=== PATIENT | female | born 1960 | race African-American/Black ===

== ENCOUNTER 2018-01-24 05:26 | Inpatient (IN) | payer MEDICAID, OTHER ==
[~2018-01-24] VITALS: Ht 160 cm; Wt 71.9 kg
[~2018-01-24 05:26] MED LIST: FERR325T20 PO
[2018-01-24] MEDS ORDERED: SODIUM CHLORID 0.9% 500 ML IV PRN (06:00)
[2018-01-24] MEDS ORDERED: HEPARIN SODIUM - SQ 10,000 UNITS/ML VIAL SQ SCH (06:00)
[2018-01-24] MEDS ORDERED: METOPROLOL TARTRATE 25 MG TAB PO PRN (06:00)
[2018-01-24] MEDS ORDERED: ceFAZolin 1,000 MG/NS 100 ML IV SCH ×2 (06:00)
[2018-01-24] MEDS ORDERED: LACTATED RINGER'S 1000 ML IV PRN (06:00)
[2018-01-24] MEDS ORDERED: CHLORHEXIDINE GLUCONATE 2 % 1 PACK (2 CLOTHS) TOPICAL PRN (06:00)
[2018-01-24] MEDS ORDERED: POVIDONE IODINE 5% (ANTISEPSIS KIT) 4 APPLICATIONS EACH NARE PRN (06:00)
[2018-01-24] MEDS ORDERED: MEDR10TA7 PO (06:17)
[2018-01-24] MEDS ORDERED: ACETAMINOPHEN 1000 MG/100 ML 100 ML IV ONE (07:04)
[2018-01-24] MEDS ORDERED: NALOXONE HCL 0.4 MG/ML AMP IV PUSH PRN (11:15)
[2018-01-24] MEDS ORDERED: SODIUM CHLORIDE 0.9% FLUSH 10 ML FLUSH IV FLUSH PRN (11:15)
[2018-01-24] MEDS ORDERED: DO NOT ADM ANY ANTICOAGULANT DRUGS PRN (11:52)
[2018-01-24] MEDS ORDERED: ONDANSETRON HCL 4 MG/2 ML VIAL IV ONE (12:00)
[2018-01-24] MEDS ORDERED: LORazepam 0.5 MG TAB PO PRN (12:00)
[2018-01-24] MEDS ORDERED: LIDOCAINE HCL 1% PF 5 ML SYRINGE OTHER ONE (12:00)
[2018-01-24] MEDS ORDERED: DEXAMETHASONE SOD PHOS 4 MG/ML VIAL IV ONE (12:00)
[2018-01-24] MEDS ORDERED: NEOSTIGMINE 5 MG/5 ML SYRINGE IV PUSH ONE (12:00)
[2018-01-24] MEDS ORDERED: GLYCOPYRROLATE 1 MG/5 ML SYRINGE IV PUSH ONE (12:00)
[2018-01-24] MEDS ORDERED: LACTATED RINGER'S 1000 ML INJ 2,000 ML IV ONE (12:00)
[2018-01-24] MEDS ORDERED: PHENYLEPH/NS 1000 MCG/10 ML SYR IV ONE (12:00)
[2018-01-24] MEDS ORDERED: ONDANSETRON HCL 4 MG/2 ML VIAL IVP PRN (12:00)
[2018-01-24] MEDS ORDERED: ePHEDrine/NS 25 MG/5 ML SYRINGE IV ONE (12:00)
[2018-01-24] MEDS ORDERED: VECURONIUM BROMIDE 20 MG VIAL IV ONE (12:00)
[2018-01-24] MEDS ORDERED: PROPOFOL 200 MG/20 ML AMP IV ONE (12:00)
[2018-01-24] MEDS ORDERED: PHENYLEPHRINE HCL 10 MG/ML VIAL IV ONE (12:00)
[2018-01-24] MEDS ORDERED: ROCURONIUM INJ 50 MG/5 ML SYRINGE IV PUSH ONE (12:00)
[2018-01-24] MEDS ORDERED: MIDAZOLAM HCL 2 MG/2 ML VIAL ONE (12:02)
[2018-01-24] MEDS ORDERED: MORPHINE SULFATE 4 MG/ML INJ ONE (12:03)
[2018-01-24] MEDS ORDERED: HYDROmorphone HCL PF 2 MG/ML VIAL ONE (12:05)
[2018-01-24] MEDS: MORPHINE SULFATE 30 MG/30 ML PCA IV SCH (12:25)
[2018-01-24] MEDS: D5-1/2 NS + KCL 20 MEQ INJ 1,000 ML IV SCH ×2 (12:30→21:56)
--- NOTE | 2018-01-24 13:01 | MP ---
cc: Trista Draper MD, John W MD DATE OF OPERATION: 01/24/2018 PREOPERATIVE DIAGNOSES: 1. Grade 2 endometrial cancer. 2. Markedly enlarged uterus. POSTOPERATIVE DIAGNOSES: 1. Grade 2 endometrial cancer. 2. Markedly enlarged uterus. PROCEDURE: Exploratory laparotomy, total abdominal hysterectomy, bilateral salpingo-oophorectomy, bilateral pelvic lymphadenectomy. SURGEON: Trista Draper MD COMMISSARY SUPERINTENDENT: [facility] nurse first aid. ANESTHESIA: General endotracheal anesthesia. ESTIMATED BLOOD LOSS: 350 cc. IV FLUIDS: 2200 cc. URINE OUTPUT: 440 cc. HISTORY: A 57-year-old female with postmenopausal bleeding of uncertain duration. Until recently it had been estimated 30 years since her last gynecologic exam. Due to persistent symptoms, she finally sought evaluation. Biopsy showed a large volume of tumor in the uterus, also extending into the cervix. Biopsies from both uterus and cervix suggested grade 2 endometrial adenocarcinoma. Physical exam and imaging showed the uterus markedly enlarged, approximately 18 cm and wide, extending down to the lower uterine segment. Also, the cervix was prominent circumferentially with suggestion of tumor infiltration into the cervix. Imaging showed no overt evidence of metastatic disease. She was counseled regarding these findings. Recommendation is for surgery. She is seen again in the preop holding area where the findings and plan are again reviewed. Questions are answered. She expressed good understanding and would like to move forward. FINDINGS: On exam under anesthesia, the cervix was prominent but circumferentially smooth. It seems as though there is probably tumor infiltrating into the endocervix, possibly into the cervical stroma but there is no obvious parametrial nodularity or retraction. The uterus and cervix still retain some mobility. The lower uterine segment is wide and the uterus extends to the level of the umbilicus. Upon exploration of the peritoneal cavity, the aforementioned findings are confirmed. The uterus is markedly enlarged. There is a mass effect in the right lower uterine segment at the junction of the lower uterine segment and cervix grossly suggestive or leiomyoma. The tubes and ovaries grossly appear normal. There are a couple of borderline prominent lymph nodes in the pelvis, one on each side. There are no appreciably enlarged or prominent lymph nodes along the common iliac vessels or along the aorta or vena cava. Diaphragm edges are smooth. Omentum grossly appears normal. Large and small bowel and adjacent mesentery are without any evidence of tumor implants. The uterus once removed was evaluated by pathology. There was a very large tumor, 13 cm estimated dimension. It invaded beyond usp into the myometrium and extended down into the cervix. STATEMENT OF COMPLEXITY/MODIFIER: The complexity of this case was increased significantly due to the markedly enlarged uterus which increased complexity of the dissection and modifier should be applied accordingly. PROCEDURE: She was taken to the operating room, placed in dorsal lithotomy position. After general endotracheal anesthesia was administered, time-out was undertaken. She was identified by sight recognition, hospital ID melanie and the proposed procedure was reviewed and confirmed. She was carefully padded and positioned in Sergio stirrups. Her arms were secured out to her sides. She was prepped and draped in sterile fashion after exam under anesthesia was performed with findings as described above. Midline incision made from the symphysis to the umbilicus, carried down to the level of the fascia. The fascia was entered. The rectus muscles were in the midline. The peritoneal cavity was entered. Peritoneal washings were obtained for cytology. Preliminary assessment of the anatomy was carried out with findings as described above. The Bookwalter and lap pad retractors were used to help assist in surgical exposure. The left round ligament was doubly suture ligated and transected. The anterior and posterior leaves of the broad ligament were opened. The left ureter was identified. The left infundibulopelvic ligament was isolated. The intervening peritoneum was opened near the uterus and dissected proximally to elevate the gonadal vessels and retract the ureter posteriorly. The gonadal vessels were then doubly clamped, cut and suture ligated. The anterior vesicouterine peritoneum was dissected over the lower uterine segment and cervix and the posterior peritoneum was opened along the right side of the uterus and cervix and the uterine vessels were skeletonized. Attention was directed towards the right side. The right round ligament was doubly suture ligated and transected. The anterior and posterior leaves of the broad ligament were opened. The right ureter was identified and the right infundibulopelvic ligament was isolated. The intervening peritoneum was opened near the uterus, dissecting the infundibulopelvic ligament proximally, elevating the gonadal vessels. The ureter was retracted posteriorly and the infundibulopelvic ligament was doubly clamped, cut and doubly suture ligated. The posterior peritoneum was opened along the left side of the uterus and cervix and the left vesicouterine peritoneum was dissected of the lower uterine segment and cervix. The uterine vessels were now clamped bilaterally and then back-clamped and a moment or two of observation to insure that the specimen began to yong satisfactorily. The uterine vessels on the right side were cut, doubly suture ligated. The cardinal, paracervical and uterosacral ligaments were isolated, clamped, cut in a stepwise fashion along the right side of the uterus and cervix. Attention was directed toward the left side where now the uterine vessels were transected, doubly suture ligated and the cardinal, paracervical and uterosacral ligaments were taken down in a stepwise fashion by clamping, cutting and suture ligating these tissues. Visual and manual palpation confirmed that dissection was now at the level of the cervix and curved Guadalupe clamps were placed at the lateral vaginal angles below the edge of the cervix. Specimen was cut, suture ligated. Curved Guadalupe clamps were then placed again below the cervix confirming the entire cervix was removed by visual and manual and palpation and then sharp dissection was used transecting below the cervix, across the vaginal apex. The specimen was inspected. The entire cervix was removed. The specimen included uterus, cervix, tubes and ovaries, was sent to pathology for preliminary histopathologic analysis. The vaginal cuff was closed and supported with interrupted [id number] 0 Vicryl sutures rendering it completely hemostatic and supported. The pelvis was thoroughly irrigated. Small bleeders were rendered hemostatic with bipolar cautery. Pathology came back showing extensive tumor, deep invasion, cervical extension and so attention was directed toward dissecting the pelvic lymph nodes. The para-vesical, pararectal and obturator spaces were opened bilaterally and the peritoneal incision was extended to gain access to these spaces. Dissection was started on the right side where lymphatic tissue was dissected starting at the bifurcation of the right iliac vessels. Bipolar cautery and sharp dissection were used to remove lymphatics from along the medial psoas muscle from the external iliac artery and vein distally to the circumflex iliac vein. The medial border of dissection was the superior vesical artery. Lymphatics and the base of dissection was the obturator nerve and lymphatics central to the obturator nerve were dissected with blunt dissection, focal cautery, sharp dissection from distal to proximal and the en bloc specimen of right pelvic lymph nodes was removed. Small bleeders were rendered hemostatic with bipolar cautery. Attention was directed toward the left side where similarly lymphatic tissue was taken from the external iliac artery and vein following the same borders distally to the circumflex iliac vein, medially to the superior vesical artery and the dissection was carried down to the obturator nerve and lymphatic tissue ventral to the obturator nerve was dissected from distal to proximal and this en block specimen of left pelvis lymph nodes was removed. Small bleeders were rendered hemostatic with bipolar cautery. The pelvis was thoroughly irrigated. Small bleeders along the bladder flap and in the pelvic dissection bed were hemostatic with cautery. All sites were hemostatic. Surgicel was placed across between the bladder flap and vaginal cuff. Surgicel was placed in the right and left pelvic lymph node dissection beds and then Surgicel powder was used across the cuff, lateral pelvic sidewalls and posterior cul-de-sac. All sites were satisfactorily hemostatic. The neurovascular structures were intact. Good peristalsis of ureters and there was a good margin between the vaginal cuff suture line and the intact bladder wall. The lap pads and Bookwalter retractor were removed. The anatomy was again explored. Inspection of the periaortic and pericaval lymph nodes revealed no abnormality. It was felt that the pelvic lymph nodes would given an accurate preliminary assessment of the presence of absence of extrauterine disease so it was felt that all reasonable surgical objectives had been completed and attention was directed toward closing. The lap pads had been removed. The Bookwalter was disassembled. Visual and manual inspection confirmed there were no remaining foreign objects in the peritoneal cavity and the preliminary counts were correct. The abdominal wall was closed with a 0 looped PDS in a running continuous modified Smead-Clark fashion starting at the apices and meeting in the midpoint where the sutures were tied. The subcutaneous tissue was irrigated, Radha's fascia reapproximated with interrupted 2-0 Vicryl sutures and then the skin edge closed with a running 3-0 Vicryl subcuticular. Steri-Strips were placed over the incisions, followed by a dry sterile dressing. Pelvic exam confirmed no remaining foreign objects in the vagina. Preliminary and final counts were correct. She was returned to dorsal supine position and was pending reversal of anesthesia with I left the operating room to precede her to the post-anesthesia care unit. MD SONJA Vance/RUBIN , 12:09 PM , 12:58 PM
[2018-01-24] MEDS: KETOROLAC TROMETHAMINE 30 MG/ML (IVP) VIAL IVP SCH ×2 (13:58→18:47)
--- NOTE | 2018-01-24 15:32 | PD.ONC.PN ---
Subjective Subjective Remarks ob/gyn doctor/onc post op note patient sleeping awakens to voice c/o pain using FUNDER denies any n/v Objective Data Date Time Temp Pulse Resp B/P (MAP) Pulse Ox O2 Delivery O2 Flow Rate FiO2 01/24/18 12:35 15 01/24/18 12:30 15 01/24/18 12:25 15 01/24/18 12:15 44 15 108/75 (86) 96 Nasal Cannula 2 01/24/18 12:00 48 15 126/61 (82) 100 Nasal Cannula 3 01/24/18 11:45 98.4 54 18 131/65 (87) 100 Nasal Cannula 4 01/24/18 06:10 99.2 72 20 135/77 (96) 98 01/24/18 01/24/18 01/24/18 06:59 14:59 22:59 Intake Total 2200 ml Output Total 790 ml Balance 1410 ml Administered Medications Medications (Trade) Dose Ordered Sig/Lis Route PRN Reason Start Time Stop Time Status Last Admin Dose Admin Lactated Ringer's 1,000 ml @ 30 mls/hr Q24H PRN IV SEE LABEL COMMENTS 01/24/18 06:00 01/27/18 05:59 01/24/18 06:20 Povidone Iodine (Betadine 5% Antisepsis Kit) 1 applic MARKETING CONTENT MANAGER PRN EACH NARE SEE LABEL COMMENTS 01/24/18 06:00 01/27/18 05:59 01/24/18 06:43 Chlorhexidine Gluconate (Chlorhexidine 2% Cloth) 3 pack MARKETING CONTENT MANAGER PRN TOPICAL SEE LABEL COMMENTS 01/24/18 06:00 01/27/18 05:59 01/24/18 05:40 Cefazolin Sodium 1000 mg/Sodium Chloride 100 ml @ 200 mls/hr MARKETING CONTENT MANAGER IV 01/24/18 06:00 01/25/18 05:59 01/24/18 07:03 Heparin Sodium (Porcine) (Heparin Inj) 5,000 units MARKETING CONTENT MANAGER SQ 01/24/18 06:00 01/25/18 05:59 01/24/18 06:43 Potassium Chloride/Dextrose/ Sod Cl 1,000 ml @ 100 mls/hr Q10H IV 01/24/18 13:00 01/24/18 12:30 Ketorolac Tromethamine (Toradol Inj) 15 mg Q6H IVP 01/24/18 13:00 01/27/18 07:01 01/24/18 13:58 Morphine Sulfate (Morphine 1 Mg/ ml FUNDER) 30 mg UNSCH IV 01/24/18 11:15 01/24/18 12:25 Objective Remarks GENERAL: Well-nourished, well-developed patient. SKIN: Warm and dry. HEAD: Normocephalic. EYES: No scleral icterus. No injection or drainage. CARDIOVASCULAR: Regular rate and rhythm without murmurs. RESPIRATORY: Breath sounds equal bilaterally. No accessory muscle use. GASTROINTESTINAL: dressing c/d/i EXTREMITIES: teds and scds. MUSCULOSKELETAL: Adequate muscle tone. NEUROLOGICAL: No obvious focal deficit. sleepy PSYCHIATRIC: Appropriate mood and affect; insight and judgment normal. Assessment/Plan Problem List: (1) Post-operative state ICD Codes: Z98.890 - Other specified postprocedural states Status: Acute Plan: s/p X lap hysterectomy and BSO with PLND post op orders in chart FUNDER for pain ADAT OOB to chair tomorrow paul d/c POD #2 cbc with diff and BMP in AM anticipate discharge in next 2-3 days. Arpita Bruce Jan 24, 2018 15:32
[2018-01-24 16:01] VITALS: BP 141/72; PULSE 49; RESP 16; TEMP 98.2; O2SAT 100
[2018-01-24] MEDS: PCA - TOTAL MG MORPHINE DELIVERED PER SHIFT SCH ×2 (16:38→22:00)
[2018-01-24] MEDS: oxyCODONE/ACETAMINOPHEN 5 MG/325 MG TAB PO PRN ×2 (17:45→21:56)
[2018-01-24 20:04] VITALS: PULSE 52
[2018-01-24 20:14] VITALS: BP 154/85; PULSE 51; TEMP 98; O2SAT 100
[2018-01-24] MEDS: SODIUM CHLORIDE 0.9% FLUSH 10 ML FLUSH IV FLUSH SCH (20:30)
[2018-01-24 23:00] VITALS: PULSE 50
[2018-01-25] VITALS (29 sets, daily range): BP systolic 101–154; BP diastolic 47–92; PULSE 48–74; RESP 14–18; TEMP 97.9–98.9; O2SAT 97–100
[2018-01-25] MEDS: KETOROLAC TROMETHAMINE 30 MG/ML (IVP) VIAL IVP SCH ×4 (01:09→18:32)
[2018-01-25] MEDS: oxyCODONE/ACETAMINOPHEN 5 MG/325 MG TAB PO PRN ×4 (02:59→22:13)
[2018-01-25] MEDS: PCA - TOTAL MG MORPHINE DELIVERED PER SHIFT SCH ×3 (06:00→22:00)
[2018-01-25 06:44] LABS: BASOPHIL % 0.3 % (0.0-2.0); EOSINOPHIL % 0.3 % (0.0-4.0); HEMATOCRIT 33.8 % (35.0-46.0); HEMOGLOBIN 11.1 GM/DL (11.6-15.3); LYMPH % 10.7 % (9.0-44.0); LYMPHOCYTE # 1.3 TH/MM3 (1.0-4.8); MEAN CELL VOLUME 78.6 FL (80.0-100.0); MEAN CORPUSCULAR HEMOGLOBIN 25.9 PG (27.0-34.0); MEAN PLATELET VOLUME 9.1 FL (7.0-11.0); MONO % 6.1 % (0.0-8.0); MONOCYTE # 0.7 TH/MM3 (0-0.9); NEUT % 82.6 % (16.0-70.0); PLATELET COUNT 311 TH/MM3 (150-450); RED CELL DISTRIBUTION WIDTH 20.2 % (11.6-17.2); WHITE BLOOD COUNT 12.1 TH/MM3 (4.0-11.0)
[2018-01-25 07:04] LABS: BICARBONATE 23.4 MEQ/L (21.0-32.0); CALCIUM 8.5 MG/DL (8.5-10.1); CREATININE 0.73 MG/DL (0.50-1.00)
[2018-01-25] MEDS: SODIUM CHLORIDE 0.9% FLUSH 10 ML FLUSH IV FLUSH SCH ×2 (07:30→20:26)
[2018-01-25] MEDS: D5-1/2 NS + KCL 20 MEQ INJ 1,000 ML IV SCH ×2 (07:39→17:40)
--- NOTE | 2018-01-25 07:51 | HHI.PR ---
Subjective . c/o pain, being tired c/w surgery no other c/o Objective . 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 pod#1 doing well in early post-op period findings, surgical steps, preliminary path reviewed q&a, she understands increase oob, spirometry continue inventory specialist manager, paul 24 hours Trista Jasso MD Jan 25, 2018 07:51
[2018-01-25] MEDS: MORPHINE SULFATE 30 MG/30 ML PCA IV SCH (13:53)
[2018-01-26] VITALS (17 sets, daily range): BP systolic 136–157; BP diastolic 81–95; PULSE 55–104; RESP 14–18; TEMP 97.5–98.9; O2SAT 96–100
[2018-01-26] MEDS: KETOROLAC TROMETHAMINE 30 MG/ML (IVP) VIAL IVP SCH ×4 (00:38→19:50)
[2018-01-26] MEDS: D5-1/2 NS + KCL 20 MEQ INJ 1,000 ML IV SCH ×2 (03:40→19:51)
[2018-01-26] MEDS: oxyCODONE/ACETAMINOPHEN 5 MG/325 MG TAB PO PRN ×4 (04:54→22:03)
[2018-01-26] MEDS: PCA - TOTAL MG MORPHINE DELIVERED PER SHIFT SCH (06:00)
--- NOTE | 2018-01-26 07:43 | HHI.PR ---
Subjective . no new c/o except some gas pains oob with assistance voiding s/p paul removal limited po intake Objective . 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 pod #2 progressing in post-op recovery decrease ivf to 50 ml/hr increase oob, spirometry adat, d/c body engineer q&a Trista Draper MD Jan 26, 2018 07:43
[2018-01-26] MEDS: SODIUM CHLORIDE 0.9% FLUSH 10 ML FLUSH IV FLUSH SCH (19:52)
[2018-01-27] VITALS (7 sets, daily range): BP systolic 150–171; BP diastolic 84–91; PULSE 65–77; RESP 16; TEMP 98–98.5; O2SAT 93–100
[2018-01-27] MEDS: KETOROLAC TROMETHAMINE 30 MG/ML (IVP) VIAL IVP SCH ×2 (02:07→06:09)
[2018-01-27] MEDS: oxyCODONE/ACETAMINOPHEN 5 MG/325 MG TAB PO PRN ×3 (02:09→11:20)
[2018-01-27] MEDS ORDERED: OXYC1TAB63 PO (06:26)
[2018-01-27] MEDS ORDERED: WALKER WHEELS/F1 MIS ×8 (06:47→10:42)
--- NOTE | 2018-01-27 06:54 | MD ---
cc: Trista Draper MD, John W MD DATE OF DISCHARGE: 01/27/2018 PROCEDURE: 01/24/2018, exploratory laparotomy, total abdominal hysterectomy, bilateral salpingo-oophorectomy, bilateral pelvic lymphadenectomy, diagnosis of endometrial cancer. HOSPITAL COURSE: She did satisfactorily in postop recovery. By postoperative day number 3, she was tolerating oral intake. De Jesus catheter had been removed previously. She was voiding without difficulty. She has been out of bed. She has been hemodynamically stable, adequate pain control. PHYSICAL EXAM: VITAL SIGNS: Afebrile, pulse 68-86, respirations 14-18, blood pressure 154-171/87-95, O2 saturations greater than equal to 98%. GENERAL: She is alert and oriented x 3 in no acute distress. LUNGS: Clear. CARDIOVASCULAR: Regular rate and rhythm. ABDOMEN: Soft. Incision, bandages clean and dry. MAMMAL KEEPER: No reported bleeding. EXTREMITIES: Nontender. ASSESSMENT: Postoperative day number 3 doing well. Findings at the time of surgery, preliminary pathology discussed. Activities and restrictions again reviewed. Questions were asked and answered. She expressed a good understanding. PLAN: Anticipate she will meet criteria for discharge to home today. She is to resume her prior medication. She will have a prescription for Percocet for pain if she needs it. She is to contact our office to ensure she has followup at approximately 2 weeks or to contact our office sooner should she have any questions or problems between now and the time of scheduled followup. MD SONJA Norton/PRUDENCE , 06:32 AM , 06:53 AM
== END 2018-01-27 11:50 | disposition home or self-care (01) | DRG 735 ==
LOC: HSDC 05:26 → HSDI 11:10 → HCIN 15:00
PROVIDERS: ADMIT Obstetrics & Gynecology Gynecologic Oncology; ATTEND Obstetrics & Gynecology Gynecologic Oncology
PROC: 0UT90ZZ Resection of Uterus, Open Approach (ICD-10-PCS; 2018-01-24)
PROC: 0UTC0ZZ Resection of Cervix, Open Approach (ICD-10-PCS; 2018-01-24)
PROC: 0UT20ZZ Resection of Bilateral Ovaries, Open Approach (ICD-10-PCS; 2018-01-24)
PROC: 0UT70ZZ Resection of Bilateral Fallopian Tubes, Open Approach (ICD-10-PCS; 2018-01-24)
PROC: 07TC0ZZ Resection of Pelvis Lymphatic, Open Approach (ICD-10-PCS; principal; 2018-01-24 07:23)
DX: C54.1 Malignant neoplasm of endometrium (principal)
CPT/HCPCS: 80048; 85025; 86850; 86900; 86901; 86920; 88112; 88305; 88307; 88309; 88311; 88331; 94150; J0131; J0690; J1100; J1170; J1644; J1885; J2250; J2270; J2370; J2405; J2710; J3010; J3480; J7120

== ENCOUNTER 2018-03-04 07:59 | Day surgery (SDC) | payer OTHER, MEDICAID ==
[~2018-03-04] VITALS: Ht 160 cm; Wt 71.4 kg
[~2018-03-04 07:59] MED LIST changes: +MEDR10TA7 PO; +OXYC1TAB63 PO; +WALKER WHEELS/F1 MIS
[2018-03-04 08:50] VITALS: BP 152/96; PULSE 58; RESP 20; TEMP 98.3; O2SAT 100
[2018-03-04] MEDS ORDERED: POVIDONE IODINE 5% (ANTISEPSIS KIT) 4 APPLICATIONS EACH NARE PRN (09:00)
[2018-03-04] MEDS ORDERED: VANCOMYCIN 1000 MG/NS 250 ML ON-CALL IV SCH ×2 (09:00)
[2018-03-04] MEDS ORDERED: CHLORHEXIDINE GLUCONATE 2 % 1 PACK (2 CLOTHS) TOPICAL PRN (09:00)
[2018-03-04] MEDS ORDERED: ceFAZolin 2 GM/DEX PREMIX 50 ML IV SCH (09:00)
[2018-03-04] MEDS ORDERED: SODIUM CHLOR 0.9% 1000 ML INJ 1,000 ML IV SCH (09:15)
[2018-03-04] MEDS ORDERED: MIDAZOLAM HCL 2 MG/2 ML VIAL ONE (10:38)
[2018-03-04] MEDS ORDERED: LIDOCAINE 1%/EPINEPHrine 1:100,000 SOLN 30 ML VIAL ONE (10:41)
--- NOTE | 2018-03-04 11:39 | PD.RAD ---
Post Procedure Progress Note Pre Procedure Diagnosis: (1) Endometrial cancer Post Procedure Diagnosis: (1) Endometrial cancer Procedure Date: Mar 04, 2018 Supervising Radiologist: Sharan Padilla Proceduralist/Assist: Ruslan Arreola, RT(R), Elif Tinajero RT(R) Anesthesia: Conscious Sedation Plan of Activity Patient to Unit: ROPU Patient Condition: Good See PACS Report for procedural detail/treatment Sharan Padilla MD Mar 04, 2018 11:39
[2018-03-04 11:40] VITALS: BP 124/71; PULSE 67; RESP 20; TEMP 97.4; O2SAT 98
[2018-03-04 11:55] VITALS: BP 118/67; PULSE 54; RESP 16; O2SAT 100
--- NOTE | 2018-03-04 11:59 | RADRPT ---
EXAM DATE/TIME: 03/04/2018 11:22 [facility] COMPARISON: No previous studies available for comparison. INDICATIONS : Patient presents with endometrial cancer in need of port placement for chemotherapy treatment. MEDICAL HISTORY : DVT PE SURGICAL HISTORY : Exp. lap Total hysterectomy Tubal ligation D&C ENCOUNTER: Initial ACUITY: 1 month PAIN SCORE: 0/10 LOCATION: n/a FLUORO TIME: 0.25 minutes IMAGE SERIES: 1 SEDATION TIME: 30 minutes ACCESS: Right internal jugular vein SEDATION: 1.) 3 mg midazolam (Versed) IV 2.) 150 mcg fentanyl (Sublimaze) IV Prophylactic antibiotics were administered with appropriate pre-procedure timing. Vancomycin within 2 hours of procedure, Ancef (or alternative) within 1 hour of procedure. DEVICE: 1. 8 Wolof single lumen BioFlo port PROCEDURE : 1. Continuous pulse oximetry and EKG monitoring. 2. Intravenous conscious sedation. 3. Ultrasound guidance for venous access. 4. Fluoroscopic guided implantable central venous port placement. The patient was placed supine. The neck was prepped in sterile fashion. Full sterile technique was u sed, including cap, mask, sterile gloves and gown, and a large sterile sheet. Hand hygiene and 2% ch lorhexidine Betadine was utilized per protocol for cutaneous antisepsis with appropriate dry time for site. Sterile gel and sterile probe cover were utilized for ultrasound guidance. The skin and sub cutaneous tissues were infiltrated with local anesthetic solution. Under direct ultrasound guidance, central venous access was accomplished in the targeted vessel. The ultrasound images depicting access guidance were stored and saved to PACS for permanent record. A s ubcutaneous pocket was created using blunt dissection. The port was introduced to the pocket. The c atheter tubing was fed through a subcutaneous tunnel to the venotomy site. The catheter tubing was c ut to a suitable length and then was introduced through a valved Peel-Away sheath and positioned with catheter tubing tip at the cavo-atrial junction level. The pocket incision was closed with subcutic ular Vicryl suture. Steri-Strips were applied. The port was flushed and locked with heparin solutio n per protocol. Sterile dressing was applied to the site. The patient tolerated the procedure well. Conscious sedation was performed with the prescribed dosages and duration as above in the presence of an independent trained radiology nurse to assist in the monitoring of the patient. EKG and oximetry remained stable throughout the procedure. The patient tolerated the procedure well and there were no complications. The patient was sent to post anesthesia recovery in stable condition. CONCLUSION: Uncomplicated ultrasound and fluoroscopic guided implanted central venous port catheter placement as described in detail above. An 8 Wolof Power port was placed. Sharan Padilla MD on March 04, 2018 at 11:57 Board Certified Radiologist. This report was verified electronically.
[2018-03-04 12:35] VITALS: BP 131/70; PULSE 72; RESP 20; O2SAT 100
[2018-03-04 13:00] VITALS: BP 127/73; PULSE 63; RESP 20; O2SAT 100
== END 2018-03-04 13:50 | disposition home or self-care (01) ==
LOC: HROP 07:59 → HRIP 08:03 → HROP 13:50
PROVIDERS: ATTEND Obstetrics & Gynecology Gynecologic Oncology
DX: C54.1 Malignant neoplasm of endometrium (principal)
CPT/HCPCS: 36561; 76937; 77001; 99152; 99153; C1788; J0690; J1642; J2250; J3010; J3370; J7030; J7050

== ENCOUNTER 2018-03-10 04:24 | Emergency (ER) | payer MEDICAID, OTHER ==
[~2018-03-10] VITALS: Ht 160 cm; Wt 70.0 kg
[~2018-03-10 04:24] MED LIST changes: -FERR325T20 PO; -OXYC1TAB63 PO; -WALKER WHEELS/F1 MIS
[2018-03-10 04:27] VITALS: BP 172/82; PULSE 66; RESP 18; TEMP 98.2; O2SAT 97
[2018-03-10] MEDS ORDERED: SODIUM CHLOR 0.9% 1000 ML INJ 1,000 ML IV SCH (04:57)
[2018-03-10] MEDS ORDERED: KETOROLAC TROMETHAMINE 30 MG/ML (IVP) VIAL IVP ONE (05:00)
[2018-03-10] MEDS ORDERED: SODIUM CHLORIDE 0.9% FLUSH 10 ML FLUSH IV FLUSH PRN (05:00)
[2018-03-10] MEDS ORDERED: ONDANSETRON HCL 4 MG/2 ML VIAL IVP ONE (05:00)
[2018-03-10] MEDS ORDERED: MORPHINE SULFATE 4 MG/ML INJ IV PUSH ONE (05:00)
--- NOTE | 2018-03-10 05:04 | PD ---
HPI Chief Complaint: Abdominal Pain Time Seen by Provider: 04:37 Travel History International Travel<30 days: No Contact w/Intl Traveler<30days: No Traveled to known affect area: No History of Present Illness HPI The patient is a 57-year-old female who presents to emergency department for lower abdominal pain that radiates into the vagina. The patient has a history of endometrial cancer recently underwent hysterectomy by her gynecologic oncologic surgeon, Dr. Draper. The patient cannot recall exactly the type of surgery, however, think she had stage III endometrial cancer. She recently underwent chemotherapy on Wednesday via port in the right chest wall. The patient had no symptoms until yesterday afternoon when she developed some periumbilical pain near the scar. She now notes there is a small area that is open in the lower scar that is weeping clear fluid. She denies any fever, chills, or sweats. She denies any nausea, vomiting, diarrhea, change in bowel habits. She does note the pain radiates into the vagina, but denies any vaginal discharge or bleeding. Symptoms are moderate. PFSH Past Medical History Arthritis: No Cancer: Yes (unsure) Cardiovascular Problems: No Diabetes: No Diminished Hearing: No Endocrine: No Genitourinary: No Hepatitis: No Hiatal Hernia: No Immune Disorder: No Musculoskeletal: No Neurologic: No Psychiatric: No Reproductive: Yes Respiratory: No Immunizations Current: No Thyroid Disease: Yes (Patient having issues with thyroid; unable to elaborate.) Tetanus Vaccination: < 5 Years Influenza Vaccination: No ?: Not Dilation and Curettage (D&C): Yes Tubal Ligation: Yes Past Surgical History AICD: No Gynecologic Surgery: Yes (D+C, TUBAL LIGATION, Hysterectomy) Hysterectomy: Yes Joint Replacement: No Pacemaker: No Other Surgery: Yes (infusa port placement) Social History Alcohol Use: No Tobacco Use: No Substance Use: No Allergies-Medications (Allergen,Severity, Reaction): Coded Allergies: No Known Allergies (Unverified Allergy, Unknown, 03/10/18) Reported Meds & Prescriptions Reported Meds & Active Scripts Active Keflex (Cephalexin) 500 Mg Capsule 500 Mg PO QID 7 Days Reported Medroxyprogesterone Acetate 10 Mg Tab 20 Mg PO DAILY Start day 21 Review of Systems Except as stated in HPI: all other systems reviewed are Neg General / Constitutional: No: Fever Cardiovascular: No: Chest Pain or Discomfort Respiratory: No: Shortness of Breath Gastrointestinal: Positive: Abdominal Pain, Other (As noted in the history of present illness), No: Nausea, Vomiting, Diarrhea Genitourinary: Positive: Pelvic Pain, No: Hematuria, Discharge, Vaginal Bleeding Skin: No Rash Physical Exam Narrative GENERAL: Awake, alert, pleasant 57-year-old female who appears her stated age and is in no acute respiratory distress. SKIN: Focused skin assessment warm/dry. HEAD: Atraumatic. Normocephalic. EYES: No injection or drainage. ENT: No nasal bleeding or discharge. Mucous membranes pink and moist. NECK: Trachea midline. No JVD. CARDIOVASCULAR: Regular rate and rhythm. No murmur appreciated. Port in place right chest wall. RESPIRATORY: No accessory muscle use. Clear to auscultation. Breath sounds equal bilaterally. GASTROINTESTINAL: Abdomen soft, minimal tenderness midline lower abdominal scar with 1.2 cm opening of the incision. There is some clear drainage from the area , no purulence. No visible bleeding. No palpable underlying hematoma or abscess. Pelvic: The exam was performed in the presence of a female nurse. External examination reveals no rashes or lesions. Speculum examination reveals what appears to be a blind cuff. There is a small yellow circular area on the left side of the cuff which is approximately 0.5 cm in diameter with minimal blood but no active arterial bleeding noted. This may be from the previous suture line. MUSCULOSKELETAL: No obvious deformities. No clubbing. No cyanosis. No edema. NEUROLOGICAL: Awake and alert. No obvious cranial nerve deficits. Motor grossly within normal limits. Normal speech. PSYCHIATRIC: Appropriate mood and affect; insight and judgment normal. Data Data Last Documented VS Vital Signs Date Time Temp Pulse Resp B/P (MAP) Pulse Ox O2 Delivery O2 Flow Rate FiO2 03/10/18 05:34 98 03/10/18 04:27 98.2 66 18 172/82 (112) Orders Orders Complete Blood Count With Diff (03/10/18 04:57) Comprehensive Metabolic Panel (03/10/18 04:57) Lactic Acid (03/10/18 04:57) Urinalysis - C+S If Indicated (03/10/18 04:57) Ct Abd/Pel W Iv Contrast(Rout) (03/10/18 04:57) Iv Access Insert/Monitor (03/10/18 04:57) Ecg Monitoring (03/10/18 04:57) Oximetry (03/10/18 04:57) Morphine Inj (Morphine Inj) (03/10/18 05:00) Ondansetron Inj (Zofran Inj) (03/10/18 05:00) Sodium Chlor 0.9% 1000 Ml Inj (Ns 1000 M (03/10/18 04:57) Sodium Chloride 0.9% Flush (Ns Flush) (03/10/18 05:00) Ketorolac Inj (Toradol Inj) (03/10/18 05:00) Iohexol 350 Inj (Omnipaque 350 Inj) (03/10/18 06:36) Ed Discharge Order (03/10/18 08:34) Labs Laboratory Tests Test 03/10/18 04:57 03/10/18 05:26 03/10/18 06:40 White Blood Count 4.4 TH/MM3 Red Blood Count 4.43 MIL/MM3 Hemoglobin 11.4 GM/DL Hematocrit 35.2 % Mean Corpuscular Volume 79.6 FL Mean Corpuscular Hemoglobin 25.7 PG Mean Corpuscular Hemoglobin Concent 32.4 % Red Cell Distribution Width 16.8 % Platelet Count 213 TH/MM3 Mean Platelet Volume 9.6 FL Neutrophils (%) (Auto) 55.1 % Lymphocytes (%) (Auto) 42.1 % Monocytes (%) (Auto) 2.3 % Eosinophils (%) (Auto) 0.2 % Basophils (%) (Auto) 0.3 % Neutrophils # (Auto) 2.4 TH/MM3 Lymphocytes # (Auto) 1.9 TH/MM3 Monocytes # (Auto) 0.1 TH/MM3 Eosinophils # (Auto) 0.0 TH/MM3 Basophils # (Auto) 0.0 TH/MM3 CBC Comment DIFF FINAL Differential Comment Blood Urea Nitrogen 14 MG/DL Creatinine 0.90 MG/DL Random Glucose 85 MG/DL Total Protein 6.9 GM/DL Albumin 3.0 GM/DL Calcium Level 8.2 MG/DL Alkaline Phosphatase 69 U/L Aspartate Amino Transf (AST/SGOT) 31 U/L Alanine Aminotransferase (ALT/SGPT) 16 U/L Total Bilirubin 0.6 MG/DL Sodium Level 143 MEQ/L Potassium Level 3.8 MEQ/L Chloride Level 109 MEQ/L Carbon Dioxide Level 25.2 MEQ/L Anion Gap 9 MEQ/L Estimat Glomerular Filtration Rate 78 ML/MIN Lactic Acid Level 0.9 mmol/L Urine Color LIGHT-YELLOW Urine Turbidity CLEAR Urine pH 6.5 Urine Specific [place] 1.011 Urine Protein NEG mg/dL Urine Glucose (UA) NEG mg/dL Urine Ketones NEG mg/dL Urine Occult Blood TRACE Urine Nitrite NEG Urine Bilirubin NEG Urine Urobilinogen LESS THAN 2.0 MG/DL Urine Leukocyte Esterase LARGE Urine RBC LESS THAN 1 /hpf Urine WBC 3 /hpf Urine Squamous Epithelial Cells 2 /hpf Urine Transitional Epithelial Cells <1 /hpf Microscopic Urinalysis Comment CULT NOT INDICATED MDM Medical Decision Making Medical Screen Exam Complete: Yes Emergency Medical Condition: Yes Medical Record Reviewed: Yes Differential Diagnosis Differential diagnosis includes abdominal wall dehiscence, postoperative seroma , postoperative hematoma, postoperative abscess, UTI, partial small bowel obstruction, adhesion. Narrative Course The patient's port was accessed, labs are drawn and sent, the patient was placed on cardiac telemetry monitoring and continuous pulse oximetry monitoring. A pelvic exam was completed in the presence of a female nurse. UA was sent to lab. CT of the abdomen and pelvis with IV contrast was obtained. The patient was administered morphine, Toradol, Zofran, and IV fluids. Diagnosis Primary Impression: Abdominal pain Qualified Codes: R10.30 - Lower abdominal pain, unspecified Patient Instructions: General Instructions Scripts Cephalexin (Keflex) 500 Mg Capsule 500 MG PO QID for Infection for 7 Days, CAP 0 Refills Prov: Hever Alfaro MD 03/10/18 Condition: Stable Nj Dewitt MD Mar 10, 2018 05:04
[2018-03-10 05:34] VITALS: O2SAT 98
[2018-03-10 05:45] LABS: AUTOMATED NEUTROPHIL # 2.4 TH/MM3 (1.8-7.7); BASOPHIL % 0.3 % (0.0-2.0); EOSINOPHIL % 0.2 % (0.0-4.0); HEMATOCRIT 35.2 % (35.0-46.0); HEMOGLOBIN 11.4 GM/DL (11.6-15.3); LYMPH % 42.1 % (9.0-44.0); LYMPHOCYTE # 1.9 TH/MM3 (1.0-4.8); MEAN CELL VOLUME 79.6 FL (80.0-100.0); MEAN CORPUSCULAR HEMOGLOBIN 25.7 PG (27.0-34.0); MEAN CORPUSCULAR HGB CONC 32.4 % (32.0-36.0); MEAN PLATELET VOLUME 9.6 FL (7.0-11.0); MONO % 2.3 % (0.0-8.0); MONOCYTE # 0.1 TH/MM3 (0-0.9); NEUT % 55.1 % (16.0-70.0); PLATELET COUNT 213 TH/MM3 (150-450); RED BLOOD COUNT 4.43 MIL/MM3 (4.00-5.30); RED CELL DISTRIBUTION WIDTH 16.8 % (11.6-17.2); WHITE BLOOD COUNT 4.4 TH/MM3 (4.0-11.0)
[2018-03-10 06:04] LABS: ALKALINE PHOSPHATASE 69 U/L (45-117); TOTAL BILIRUBIN ADULT 0.6 MG/DL (0.2-1.0); TOTAL PROTEIN 6.9 GM/DL (6.4-8.2)
[2018-03-10 06:09] LABS: ALT (GPT) 16 U/L (10-53); AST (GOT) 31 U/L (15-37); BICARBONATE 25.2 MEQ/L (21.0-32.0); BLOOD UREA NITROGEN 14 MG/DL (7-18); CALCIUM 8.2 MG/DL (8.5-10.1); CHLORIDE 109 MEQ/L (98-107); GLOMERULAR FILTRATION RATE 78 ML/MIN (>89); GLUCOSE,RANDOM 85 MG/DL (74-106); SODIUM (NA) 143 MEQ/L (136-145)
[2018-03-10] MEDS ORDERED: IOHEXOL 350 MG/ML 10 ML VIAL (for RAD DIAG) IVCONTRAST ONE (06:36)
--- NOTE | 2018-03-10 06:51 | RADRPT ---
EXAM DATE/TIME: 03/10/2018 06:20 [facility] COMPARISON: CT ABDOMEN & PELVIS W CONTRAST, September 14, 2017, 6:10. INDICATIONS : Lower abdominal pain. IV CONTRAST: 100 cc Omnipaque 350 (iohexol) IV ORAL CONTRAST: No oral contrast ingested. RADIATION DOSE: 6.64 CTDIvol (mGy) MEDICAL HISTORY : Endometrial cancer. Chemotherapy. SURGICAL HISTORY : Hysterectomy. ENCOUNTER: Initial ACUITY: 1 day PAIN SCALE: 9/10 LOCATION: Bilateral lower quadrant TECHNIQUE: Volumetric scanning of the abdomen and pelvis was performed. Using automated exposure control and ad justment of the mA and/or kV according to patient size, radiation dose was kept as low as reasonably achievable to obtain optimal diagnostic quality images. DICOM format image data is available electro nically for review and comparison. FINDINGS: LOWER LUNGS: The visualized lower lungs are clear. LIVER: Homogeneous density without lesion. There is no dilation of the biliary tree. No calcified gallston es. Subcentimeter low-density in the medial segment left lobe. SPLEEN: Normal size without lesion. PANCREAS: Within normal limits. KIDNEYS: Normal in size and shape. There is no mass, stone or hydronephrosis. Retroaortic left renal vein. ADRENAL GLANDS: Within normal limits. VASCULAR: There is no aortic aneurysm. BOWEL/MESENTERY: The stomach, small bowel, and colon demonstrate no acute abnormality. There is no free intraperitone al air or fluid. ABDOMINAL WALL: Intact. Some minimal stranding bilaterally likely related to postsurgical changes from previous hyste rectomy. RETROPERITONEUM: There is no lymphadenopathy. BLADDER: No wall thickening or mass. REPRODUCTIVE: Status post hysterectomy. No residual pelvic mass or adenopathy. Cystic structure left anterior pelvi s likely ovarian cyst measuring 3 cm. INGUINAL: There is no lymphadenopathy or hernia. MUSCULOSKELETAL: Within normal limits for patient age. CONCLUSION: 1. No acute inflammatory process. 2. 3 cm left ovarian cyst. 3. Postsurgical changes with previous hysterectomy. 4. Stable subcentimeter hepatic hypodensity. Leland Khanna MD on March 10, 2018 at 6:42 Board Certified Radiologist. This report was verified electronically.
[2018-03-10 06:53] LABS: BILIRUBIN, URINE NEG (NEG); BLOOD, URINE TRACE (NEG); GLUCOSE,URINE NEG (NEG); KETONE, URINE NEG (NEG); NITRITE,URINE NEG (NEG); PH, URINE 6.5 (5.0-8.5); SQUAMOUS EPITHELIAL CELL URINE 2 /hpf (0-5); TRANSITIONAL EPI CELLS, URINE <1 /hpf; URINE COLOR LIGHT-YELLOW (YELLW/STRAW); URINE LEUKOCYTE ESTERASE LARGE (NEG)
--- NOTE | 2018-03-10 08:24 | HHI.FF ---
Face to Face Verification Diagnosis: (1) Abdominal pain Physical Therapy Order: Evaluate and Treat Home Health Nursing Order: Wound care and dressing changes Instructions: wet to dry wound dressing on abdominal wall surgical wound dehiscence I have seen patient Maryjane Clark on 03/10/18. My clinical findings support the need for the requested home health care services because: Infection w/ risk of complications I certify that my clinical findings support that this patient is homebound because: recent abdominal surgery. Post-op weakness (recent abdominal surgery for endometrial cancer.) risk for worsening infection and wound breakdown. Hever Alfaro MD Mar 10, 2018 08:24
[2018-03-10] MEDS ORDERED: CEPH-460 PO (08:30)
--- NOTE | 2018-03-10 08:34 | PD ---
Physical Exam Date Seen by Provider: Mar 10, 2018 Time Seen by Provider: 07:00 Narrative This patient was signed out to me by Dr. Dewitt at change of shift. We are waiting a call from Dr. Trista Draper. This is a 57-year-old female with history of endometrial cancer, presented with abdominal discomfort. The patient had a inferior surgical site wound dehiscence. It was superficial. There is no evidence of purulence. Data Data Last Documented VS Vital Signs Date Time Temp Pulse Resp B/P (MAP) Pulse Ox O2 Delivery O2 Flow Rate FiO2 03/10/18 05:34 98 03/10/18 04:27 98.2 66 18 172/82 (112) Orders Orders Complete Blood Count With Diff (03/10/18 04:57) Comprehensive Metabolic Panel (03/10/18 04:57) Lactic Acid (03/10/18 04:57) Urinalysis - C+S If Indicated (03/10/18 04:57) Ct Abd/Pel W Iv Contrast(Rout) (03/10/18 04:57) Iv Access Insert/Monitor (03/10/18 04:57) Ecg Monitoring (03/10/18 04:57) Oximetry (03/10/18 04:57) Morphine Inj (Morphine Inj) (03/10/18 05:00) Ondansetron Inj (Zofran Inj) (03/10/18 05:00) Sodium Chlor 0.9% 1000 Ml Inj (Ns 1000 M (03/10/18 04:57) Sodium Chloride 0.9% Flush (Ns Flush) (03/10/18 05:00) Ketorolac Inj (Toradol Inj) (03/10/18 05:00) Iohexol 350 Inj (Omnipaque 350 Inj) (03/10/18 06:36) Labs Laboratory Tests Test 03/10/18 04:57 03/10/18 05:26 03/10/18 06:40 White Blood Count 4.4 TH/MM3 Red Blood Count 4.43 MIL/MM3 Hemoglobin 11.4 GM/DL Hematocrit 35.2 % Mean Corpuscular Volume 79.6 FL Mean Corpuscular Hemoglobin 25.7 PG Mean Corpuscular Hemoglobin Concent 32.4 % Red Cell Distribution Width 16.8 % Platelet Count 213 TH/MM3 Mean Platelet Volume 9.6 FL Neutrophils (%) (Auto) 55.1 % Lymphocytes (%) (Auto) 42.1 % Monocytes (%) (Auto) 2.3 % Eosinophils (%) (Auto) 0.2 % Basophils (%) (Auto) 0.3 % Neutrophils # (Auto) 2.4 TH/MM3 Lymphocytes # (Auto) 1.9 TH/MM3 Monocytes # (Auto) 0.1 TH/MM3 Eosinophils # (Auto) 0.0 TH/MM3 Basophils # (Auto) 0.0 TH/MM3 CBC Comment DIFF FINAL Differential Comment Blood Urea Nitrogen 14 MG/DL Creatinine 0.90 MG/DL Random Glucose 85 MG/DL Total Protein 6.9 GM/DL Albumin 3.0 GM/DL Calcium Level 8.2 MG/DL Alkaline Phosphatase 69 U/L Aspartate Amino Transf (AST/SGOT) 31 U/L Alanine Aminotransferase (ALT/SGPT) 16 U/L Total Bilirubin 0.6 MG/DL Sodium Level 143 MEQ/L Potassium Level 3.8 MEQ/L Chloride Level 109 MEQ/L Carbon Dioxide Level 25.2 MEQ/L Anion Gap 9 MEQ/L Estimat Glomerular Filtration Rate 78 ML/MIN Lactic Acid Level 0.9 mmol/L Urine Color LIGHT-YELLOW Urine Turbidity CLEAR Urine pH 6.5 Urine Specific [place] 1.011 Urine Protein NEG mg/dL Urine Glucose (UA) NEG mg/dL Urine Ketones NEG mg/dL Urine Occult Blood TRACE Urine Nitrite NEG Urine Bilirubin NEG Urine Urobilinogen LESS THAN 2.0 MG/DL Urine Leukocyte Esterase LARGE Urine RBC LESS THAN 1 /hpf Urine WBC 3 /hpf Urine Squamous Epithelial Cells 2 /hpf Urine Transitional Epithelial Cells <1 /hpf Microscopic Urinalysis Comment CULT NOT INDICATED MDM Medical Record Reviewed: Yes Supervised Visit with RONNIE: No Narrative Course 57-year-old female history of endometrial cancer, presents with abdominal discomfort. Patient was noted to have a inferior surgical site superficial wound dehiscence. Patient also had a 0.5 cm cuff area of slight bleeding. Case was discussed with Dr. Trista Draper. Dr. Draper asked if we could arrange for home health care to help with wound care. I discussed this case with our correctional case records supervisor and she is arranged to have wound care nurse come to the house to teach the patient and her family members how to dress the wound. She will be placed on Keflex 500 mg 4 times daily 7 days. She is instructed to call Dr. Draper's office either today or tomorrow for an appointment next week. Diagnosis Primary Impression: Abdominal pain Qualified Codes: R10.30 - Lower abdominal pain, unspecified Additional Impression: Inferior surgical site wound dehiscence. Additional Instruction: Call Dr. Draper's office today or tomorrow to arrange for an appointment next week. Return if fevers, chills, increased drainage from the surgical site or any other reason that concerns you. Med/Other Pt SpecificInfo: Prescription(s) given Scripts Cephalexin (Keflex) 500 Mg Capsule 500 MG PO QID for Infection for 7 Days, CAP 0 Refills Prov: Hever Alfaro MD 03/10/18 Disposition: DISCHARGE HOME Condition: Stable Hever Alfaro MD Mar 10, 2018 08:34
== END 2018-03-10 09:23 | disposition home or self-care (01) ==
LOC: NEPE 04:24
DX: R10.30 Lower abdominal pain, unspecified (principal); T81.31XA Disruption of external operation (surgical) wound, not elsewhere classified, initial encounter; N83.202 Unspecified ovarian cyst, left side; C54.1 Malignant neoplasm of endometrium; Z79.899 Other long term (current) drug therapy
CPT/HCPCS: 74177; 80053; 81001; 83605; 85025; 96361; 96374; 96375; 99284; J1885; J2270; J2405; J7030; Q9967